=== PATIENT | female | born 1985 | race Caucasian/White ===

== ENCOUNTER 2016-10-02 04:45 | Inpatient (IN) | payer OTHER ==
--- NOTE | 2016-10-02 05:23 | PDGENHP ---
History and Physical - Chief Complaint 31 y.o. female at 41 1/7 weeks in early labor - History of Present Illness 31 y.o. female presents at 41 1/7 weeks with regular uterine contractions. Minimal cervical change from exam in office. Noted mildly elevated BP readings and will check PIH labs STAT. History Information - Allergies/Home Medication List Allergies/Adverse Reactions: No Known Allergies Allergy (Unverified 04/05/09 19:49) Home Medications: Necon 04/05/09 [Last Taken Unknown] I have personally reviewed and updated: family history, medical history, social history, surgical history - Past Medical History no pertinent PMH - Surgical History Reports: no pertinent surgical hx - Social History Smoking Status: Never smoked Alcohol Use: None Drug Use: None Review of Systems ROS: 10pt was reviewed & negative except for what was stated in HPI & below Constitutional: Reports: no symptoms EENMT: Reports: no symptoms Cardiac: Reports: no symptoms Respiratory: Reports: no symptoms Gastrointestinal: Reports: no symptoms Genitourinary: Reports: no symptoms Muscolosketal: Reports: no symptoms Skin: Reports: no symptoms Neurological: Reports: no symptoms Hematologic/Lymphatic: Reports: no symptoms Immunologic/Allergy: Reports: no symptoms Physical Exam Constitutional: no apparent distress Ears, Nose, Mouth, Throat: moist mucous membranes, hearing normal Cardiovascular: regular rate and rhythym, no murmur, rub, or gallop Respiratory: no respiratory distress, no rales or rhonchi Gastrointestinal: soft, non-tender abdomen Genitourinary: no bladder fullness Skin: warm, normal color Musculoskeletal: full muscle strength, no muscle tenderness Neurologic: AAOx3, sensation intact bilaterally Psychiatric: interacting appropriately Assessment & Plan Assessment: 31 y.o. female at 41 1/7 weeks in early labor VS- mildly elevated BPs and will check PIH labs EFM- reactive CAT I Plan: Order PIH labs STAT. Allow patient to ambulate and recheck in 2 hours Recheck BP every 5 minutes.
--- NOTE | 2016-10-02 05:30 | OBPROG ---
OBG Labor Progress Note Assessment/Plan: Assessment: 31 y.o. female at 41 1/7 weeks in early labor. Mildly elevated BPs. EFM- reactive CAT I. Plan: Order PIH labs STAT. Allow patient to ambulate. Recheck SVE in 2 hours. 10/02/16 05:26 Subjective: Patient comfortable with uterine contractions. Denies current headaches, visual changes or RUQ pain. Reports good movement. Denies VB or LOF. - SVE Dilation (cm): 3 Effacement (%): 75 Station: -2 - Physical Exam General Appearance: WD/WN, alert, no apparent distress Estimated Weight: 5942-9388 EENT: normal ENT inspection Neck: non-tender, full range of motion, supple, normal inspection Respiratory: lungs clear, normal breath sounds Cardiac/Chest: regular rate, rhythm Abdomen: non-tender, soft Extremities: normal range of motion, non-tender, normal inspection Back: Normal inspection Skin: normal color, warm/dry Neuro/Psych: alert, normal mood/affect, oriented x 3 ICD10 Worksheet Patient Problems: Problems Problem Status Onset 41 weeks gestation of Acute Elevated blood pressure affecting in third trimester, antepartum Acute - ICD10 Problem Qualifiers (1) 41 weeks gestation of (2) Elevated blood pressure affecting in third trimester, antepartum
[2016-10-02 06:01] LABS: % IMMATURE GRANULYOCYTES 0.7 % (0.0-1.1); ADD DIFF? NO; ADD MORPH? NO; ADD SCAN? NO; ATYPICAL LYMPHOCYTE FLAG 0 (0-99); FRAGMENT RBC FLAG 0 (0-99); HEMATOCRIT 40.5 % (38.0-47.0); LEFT SHIFT FLG 0 (0-99); LIPEMIA HEMOLYSIS FLAG 90 (0-99); MEAN CELL HEMOGLOBIN 31.7 pg (27.9-34.1); MEAN CELL HEMOGLOBIN CONCENTR. 34.6 g/dL (32.4-36.7); MEAN CELL VOLUME 91.6 fL (81.5-99.8); MEAN PLATELET VOLUME 14.7 fL (8.7-11.7); PLATELET CLUMPS FLAG 0 (0-99); PLATELET COUNT 133 10^3/uL (150-400); RED BLOOD CELL COUNT 4.42 10^6/uL (4.18-5.33); RED CELL DISTRIBUTION WIDTH 13.4 % (11.5-15.2)
[2016-10-02 06:23] LABS: ALANINE AMINOTRANSFERASE 33 IU/L (9-52); ASPARTATE AMINOTRANSFERASE 22 IU/L (14-46); BILIRUBIN,TOTAL 0.3 mg/dL (0.1-1.4); BILIRUBIN-CONJUGATED 0.1 mg/dL (0.0-0.5); BILIRUBIN-UNCONJUGATED 0.2 mg/dL (0.0-1.1); CREATININE 0.6 mg/dL (0.6-1.0); GLOMERULAR FILTRATION RATE > 60; LACTATE DEHYDROGENASE 482 IU/L (313-618); URIC ACID 6.2 mg/dL (2.5-6.8)
[2016-10-02] MEDS ORDERED: fentaNYL 100 MCG/2 ML INJ ONE (07:27)
[2016-10-02] MEDS ORDERED: BUPIVACAINE 0.25% 30 ML SDV ONE ×2 (07:28→07:53)
[2016-10-02] MEDS ORDERED: OXYTOCIN/RINGERS LACTATE 1,000 ML IV PRN (07:39)
[2016-10-02] MEDS ORDERED: OLIVE OIL 118 ML BTL MISC PRN (07:39)
[2016-10-02] MEDS ORDERED: EPSOM SALT 454 GM TP PRN (07:39)
[2016-10-02] MEDS ORDERED: IBUPROFEN 600 MG TAB PO PRN (07:39)
[2016-10-02] MEDS ORDERED: TERBUTALINE SULFATE 1 MG/ML VIAL IV PRN (07:39)
[2016-10-02] MEDS ORDERED: LR 1,000 ML IV PRN (07:39)
[2016-10-02] MEDS ORDERED: PHENYLEPHRINE HCL 100 MCG/ML SYR ONE (07:41)
[2016-10-02] MEDS ORDERED: fentaNYL 2MCG/ML/BUP 0.1% RTU 100 ML BAG EP ONE (07:56)
[2016-10-02] MEDS ORDERED: fentaNYL 2MCG/ML/BUP 0.1% RTU 100 ML EP SCH (08:30)
[2016-10-02] MEDS ORDERED: LR 500 ML IV SCH (08:30)
--- NOTE | 2016-10-02 08:34 | OBPROG ---
OBG Labor Progress Note Assessment/Plan: Assessment: Labor GBS neg status reassuring Plan: Expectant management Continuous monitoring 10/02/16 08:34 Subjective: comfortable with epidural Objective: 10/02/16 05:45 10/02/16 05:45 Patient ABO/Rh O POSITIVE 10/02/16 05:45 Uric Acid 6.2 mg/dL (2.5-6.8) 10/02/16 05:45 Total Bilirubin 0.3 mg/dL (0.1-1.4) 10/02/16 05:45 Conjugated Bilirubin 0.1 mg/dL (0.0-0.5) 10/02/16 05:45 Unconjugated Bilirubin 0.2 mg/dL (0.0-1.1) 10/02/16 05:45 AST 22 IU/L (14-46) 10/02/16 05:45 ALT 33 IU/L (9-52) 10/02/16 05:45 Lactate Dehydrogenase 482 IU/L (313-618) 10/02/16 05:45 - SVE Dilation (cm): 5 Effacement (%): 90 Station: -2 - Procedures Non-surgical Procedures: Amniotomy (rupture at time of check) - Physical Exam Estimated Weight: 8923-5951 Oxytocin Orders Assessment - Pre-Induction/Augmentation Assessment Estimated Weight: 4111-8051 ICD10 Worksheet Patient Problems: Problems Problem Status Onset 41 weeks gestation of Acute Elevated blood pressure affecting in third trimester, antepartum Acute
[2016-10-02] MEDS ORDERED: TERBUTALINE SULFATE 1 MG/ML VIAL ONE (09:10)
[2016-10-02] MEDS ORDERED: AMMONIA AROMATIC 1 EACH AMP IH ONE (09:10)
[2016-10-02] MEDS ORDERED: LIDOCAINE 1% 300 MG/30 ML SDV ONE (09:10)
[2016-10-02] MEDS ORDERED: OLIVE OIL 118 ML BTL ONE (09:10)
[2016-10-02] MEDS ORDERED: OXYTOCIN 10 UNIT/ML VIAL ONE (09:11)
[2016-10-02] MEDS ORDERED: MISOPROSTOL 200 MCG TAB ONE (09:11)
--- NOTE | 2016-10-02 12:51 | OBPROG ---
OBG Labor Progress Note Assessment/Plan: Assessment: Labor GBS neg status reassuring Plan: Expectant management Continuous monitoring Position changes--ROP presentation Start pushing soon Subjective: 118/74 97 96% 37.2 Objective: 10/02/16 05:45 10/02/16 05:45 Patient ABO/Rh O POSITIVE 10/02/16 05:45 Uric Acid 6.2 mg/dL (2.5-6.8) 10/02/16 05:45 Total Bilirubin 0.3 mg/dL (0.1-1.4) 10/02/16 05:45 Conjugated Bilirubin 0.1 mg/dL (0.0-0.5) 10/02/16 05:45 Unconjugated Bilirubin 0.2 mg/dL (0.0-1.1) 10/02/16 05:45 AST 22 IU/L (14-46) 10/02/16 05:45 ALT 33 IU/L (9-52) 10/02/16 05:45 Lactate Dehydrogenase 482 IU/L (313-618) 10/02/16 05:45 - SVE Dilation (cm): 10 Effacement (%): 100 Station: +1 [place] FHR (bpm): 120 FHR Pattern Variability: Moderate FHR Category: 2 (intermittent variables) Amniotic Fluid Color: Clear - Procedures Non-surgical Procedures: Amniotomy (rupture at time of check) - Physical Exam Estimated Weight: 8653-0485 Oxytocin Orders Assessment - Pre-Induction/Augmentation Assessment Gestational Age: 41 week(s) and 1 day(s) Estimated Weight: 3871-3942 ICD10 Worksheet Patient Problems: Problems Problem Status Onset 41 weeks gestation of Acute Elevated blood pressure affecting in third trimester, antepartum Acute
[2016-10-02] MEDS ORDERED: HYDROCORTISONE 0.5% CREAM TP PRN (15:39)
[2016-10-02] MEDS ORDERED: ACETAMINOPHEN 325 MG TAB PO PRN (15:39)
[2016-10-02] MEDS ORDERED: SIMETHICONE 80 MG TAB CHEW PO PRN (15:39)
[2016-10-02] MEDS ORDERED: DOCUSATE SODIUM 100 MG CAP PO PRN (15:39)
[2016-10-02] MEDS ORDERED: HYDROCODONE/APAP 5/325 TAB PO PRN (15:39)
[2016-10-02] MEDS ORDERED: EPSOM SALT 454 GM TP ONE (15:40)
--- NOTE | 2016-10-02 15:42 | OBDEL ---
Info Type: Vaginal GBS+: No Indications for Delivery: Spontaneous Labor Vaginal Delivery - Labor and Delivery Onset of Contractions Date: 10/02/16 Onset of Contractions Type: Spontaneous Rupture of Membranes Date: 10/02/16 Rupture of Membranes Type: Artificial Amniotic Fluid Color: Clear Dilation Complete Date: 10/02/16 Placenta Delivery Date: 10/02/16 Non-surgical Procedures: Amniotomy (rupture at time of check) Laceration: Other (Specify) (small bilateral vaginal) Repair: 3-0 Vaginal Sponge Count Correct: Yes Data [place] Delivery Date: 10/02/16 Delivery Time: 15:16 CHRISTIAN: 09/24/16 Gestational Age: 41 week(s) and 1 day(s) Sex of : Female Score (1 Min): 8 Score (5 Min): 9 ICD10 Worksheet Patient Problems: Problems Problem Status Onset 41 weeks gestation of Acute Elevated blood pressure affecting in third trimester, antepartum Acute
[2016-10-02] MEDS: IBUPROFEN 600 MG TAB PO PRN (23:56)
[2016-10-03] MEDS: IBUPROFEN 600 MG TAB PO PRN ×3 (05:50→18:51)
--- NOTE | 2016-10-03 08:06 | OBPP ---
Progress Note Assessment/Plan: Assessment: 31 y.o. female s/p PPD #1. Recovering well with good pain control. Mildly elevated BPs. Plan: Recheck [facility] labs today. Routine care. consult. 10/02/16 05:26 10/03/16 08:03 Subjective: Patient reports feeling well with good pain control. infant with assistance. Discussed elevated BPs and patient denies current headaches, visual changes or RUQ pain. Eating and drinking well without nausea or vomiting. Ambulating without vertigo. Appropriate mood with good support system. Objective: 10/02/16 05:45 10/02/16 05:45 Patient ABO/Rh O POSITIVE 10/02/16 05:45 Uric Acid 6.2 mg/dL (2.5-6.8) 10/02/16 05:45 Total Bilirubin 0.3 mg/dL (0.1-1.4) 10/02/16 05:45 Conjugated Bilirubin 0.1 mg/dL (0.0-0.5) 10/02/16 05:45 Unconjugated Bilirubin 0.2 mg/dL (0.0-1.1) 10/02/16 05:45 AST 22 IU/L (14-46) 10/02/16 05:45 ALT 33 IU/L (9-52) 10/02/16 05:45 Lactate Dehydrogenase 482 IU/L (313-618) 10/02/16 05:45 Temp Pulse Resp BP Pulse Ox 37.2 C 89 16 134/82 H 10/02/16 20:00 10/02/16 20:00 10/02/16 20:00 10/02/16 20:00 Uterine Position/Fundal Height: Umbilicus -1 Uterine Tone: Firm Physical Exam - Physical Exam General Appearance: WD/WN, alert, no apparent distress EENT: normal ENT inspection Neck: non-tender, full range of motion, normal inspection Respiratory: lungs clear, normal breath sounds Cardiac/Chest: regular rate, rhythm Abdomen: non-tender, soft Extremities: non-tender, normal inspection Back: Normal inspection Skin: normal color, warm/dry Neuro/Psych: alert, normal mood/affect, oriented x 3
[2016-10-03] MEDS ORDERED: EPSOM SALT 454 GM TP ONE (08:34)
[2016-10-03 08:35] LABS: % IMMATURE GRANULYOCYTES 0.7 % (0.0-1.1); ABSOLUTE IMMATURE GRANULOCYTES 0.09 10^3/uL (0.00-0.10); ADD DIFF? NO; ADD MORPH? NO; ADD SCAN? NO; ATYPICAL LYMPHOCYTE FLAG 0 (0-99); FRAGMENT RBC FLAG 0 (0-99); HEMATOCRIT 35.8 % (38.0-47.0); HEMOGLOBIN 12.3 g/dL (12.6-16.3); LEFT SHIFT FLG 0 (0-99); LIPEMIA HEMOLYSIS FLAG 90 (0-99); MEAN CELL HEMOGLOBIN 31.9 pg (27.9-34.1); MEAN CELL HEMOGLOBIN CONCENTR. 34.4 g/dL (32.4-36.7); MEAN PLATELET VOLUME 13.8 fL (8.7-11.7); PLATELET CLUMPS FLAG 10 (0-99); PLATELET COUNT 117 10^3/uL (150-400); RED BLOOD CELL COUNT 3.85 10^6/uL (4.18-5.33); RED CELL DISTRIBUTION WIDTH 13.8 % (11.5-15.2)
[2016-10-03 09:02] LABS: ALANINE AMINOTRANSFERASE 30 IU/L (9-52); ASPARTATE AMINOTRANSFERASE 36 IU/L (14-46); BILIRUBIN,TOTAL 0.5 mg/dL (0.1-1.4); BILIRUBIN-CONJUGATED 0.2 mg/dL (0.0-0.5); BILIRUBIN-UNCONJUGATED 0.3 mg/dL (0.0-1.1); CREATININE 0.6 mg/dL (0.6-1.0); GLOMERULAR FILTRATION RATE > 60; LACTATE DEHYDROGENASE 506 IU/L (313-618); URIC ACID 6.5 mg/dL (2.5-6.8)
[2016-10-03 21:21] VITALS: BP 121/78; PULSE 83; RESP 16; TEMP 97.8; O2SAT 96
[2016-10-04] MEDS: IBUPROFEN 600 MG TAB PO PRN ×2 (03:16→09:14)
--- NOTE | 2016-10-04 07:22 | OBGCSDC ---
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 FRANCES. Uncomplicated delivery : Routine pp care. Expressing milk, working on latch with baby. Rh pos, Rub imm - Delivery Non-surgical Procedures: Amniotomy (rupture at time of check) L&D Analgesia/Anesthesia Type: Epidural [place] Data [facility] Delivery Date: 10/02/16 Delivery Time: 15:16 CHRISTIAN: 09/24/16 Gestational Age: 41 week(s) and 3 day(s) Sex of Infant: Female [place] Weight (gm): 3222 kg Score (1 Min): 8 Score (5 Min): 9 Discharge Information - Discharge Information Discharge Medications: Ibuprofen Condition: Good Instruction/Follow Up: Four Weeks, Six Weeks Discharge Physician/CNM: Sloane Crisostomo
== END 2016-10-04 16:34 | disposition home or self-care (01) | DRG 774 ==
LOC: OBSVTOIN 04:45 → FLD 04:45 → FOB 18:21
PROVIDERS: ADMIT Midwife; ATTEND Obstetrics & Gynecology
PROC: 10E0XZZ Delivery of Products of Conception, External Approach (ICD-10-PCS; principal; 2016-10-02)
PROC: 10907ZC Drainage of Amniotic Fluid, Therapeutic from Products of Conception, Via Natural or Artificial Opening (ICD-10-PCS; principal; 2016-10-02)
PROC: 0HQ9XZZ Repair Perineum Skin, External Approach (ICD-10-PCS; principal; 2016-10-02)
DX: O48.0 Post-term pregnancy (principal); R03.0 Elevated blood-pressure reading, without diagnosis of hypertension; O70.0 First degree perineal laceration during delivery; O69.9XX0 Labor and delivery complicated by cord complication, unspecified, not applicable or unspecified; O98.313 Other infections with a predominantly sexual mode of transmission complicating pregnancy, third trimester; Z3A.41 41 weeks gestation of pregnancy; Z37.0 Single live birth
CPT/HCPCS: J2370; J2590; J3010; J3105